=== PATIENT | female | born 1990 | race Caucasian/White ===

== ENCOUNTER → 2018-04-30 | Outpatient (CLI) | payer OTHER ==
[~2018-04-30] MED LIST: CITA20TA9 PO; GADAVIST IV PRN; JUNEL PO
--- NOTE | 2018-04-30 17:14 | DIAGNOSTIC IMAGING REPORT ---
MRA HEAD WITHOUT CONTRAST HISTORY: Headache WORSENING MIGRAINES TECHNIQUE: 3-D [id number] MRA of the brain was performed without contrast. COMPARISON STUDY: None. FINDINGS: Visualized intracranial internal carotid arteries, distal vertebral arteries, and basilar artery are widely patent. There is no significant stenosis, occlusion, or aneurysm seen within the bilateral ACAs, MCAs, or nipple machine operator. IMPRESSION: No significant stenosis, occlusion, or aneurysm within the absentee-[place] of Samuel. The above report was generated using voice recognition software. It may contain grammatical, syntax or spelling errors. Electronically signed by: Anjum Alston M.D. 04/30/2018 5:12 PM Dictated Date/Time: 04/30/2018 5:10 PM
--- NOTE | 2018-04-30 17:23 | DIAGNOSTIC IMAGING REPORT ---
BRAIN COMBO CLINICAL HISTORY: 27 years-old Female presenting with WORSENING MIGRAINES, increased neck and back pain, jaw pain. TECHNIQUE: Multisequence, multiplanar MR imaging of the brain was performed before and after the administration of intravenous contrast. IV contrast: 5 mL of Gadavist. COMPARISON: None. FINDINGS: Localizer images: Unremarkable. Ventricles and sulci normal in size. Brain parenchyma normal in appearance with preserved felipe-white differentiation. No mass effect or midline shift. No restricted diffusion to suggest acute ischemia. No hemorrhage. No extra-axial fluid collection. T2 skull base flow voids preserved. No abnormal parenchymal enhancement. Bone marrow signal intensity within the calvarium within normal limits. IMPRESSION: 1. No acute intracranial pathology. No abnormal enhancement. Electronically signed by: Ted Awad M.D. 04/30/2018 5:21 PM Dictated Date/Time: 04/30/2018 5:16 PM
== END | disposition home or self-care (01) ==
LOC: C.MRI 15:53
PROVIDERS: ATTEND Nurse Practitioner Family
DX: G43.909 Migraine, unspecified, not intractable, without status migrainosus (principal); H53.9 Unspecified visual disturbance

== ENCOUNTER 2019-08-31 00:59 | Inpatient (IN) ==
[2019-08-31] MEDS: LACTATED RINGER'S 1,000 ML IV PRN ×3 (01:37→07:07)
[2019-08-31] MEDS ORDERED: OXYTOCIN 30 UNITS/500 ML BAG IV PRN ×2 (01:38→08:19)
[2019-08-31] MEDS ORDERED: fentaNYL citrate 100 MCG/2 ML VIAL ONE (01:48)
[2019-08-31] MEDS ORDERED: BUPIVACAINE 0.25% 30 ML VIAL ONE (01:48)
[2019-08-31] MEDS ORDERED: fentaNYL 2MCG/ML ROPIV 1.25MG/ML 100 ML BAG EPI ONE (01:48)
[2019-08-31] MEDS ORDERED: ePHEDrine sulfate 50 MG/ML AMP ONE (01:48)
[2019-08-31 02:01] LABS: Hematocrit (blood only) 36.5 % (37-47); Hemoglobin 12.4 g/dL (12.0-16.0); Mean Corpuscular Hemoglobin 30.1 pg (25-34); Mean Corpuscular Volume 88.6 fL (80-100); Mean Platelet Volume 11.7 fL (7.4-10.4); Platelet Count 170 K/uL (130-400); RDW Coefficient of Variation 13.8 % (11.5-14.5); RDW Standard Deviation 44.6 fL (36.4-46.3); Red Blood Count 4.12 M/uL (4.2-5.4); White Blood Count 10.92 K/uL (4.8-10.8)
[2019-08-31] MEDS ORDERED: ONDANSETRON INJ 2 MG/ML 2 ML VIAL IV PRN (02:10)
[2019-08-31] MEDS ORDERED: NALOXONE HCL 1 MG in SODIUM CHLORIDE 0.9% 1000ML 1,000 ML IV PRN (02:10)
[2019-08-31] MEDS ORDERED: DiphenhydrAMINE HCL 50 MG/ML VIAL IV PRN (02:10)
[2019-08-31] MEDS ORDERED: NALOXONE HCL 0.4 MG/1 ML VIAL/CARP IV PRN (02:10)
[2019-08-31] MEDS ORDERED: ePHEDrine sulfate 50 MG/ML AMP IV PRN (02:10)
[2019-08-31] MEDS ORDERED: fentaNYL 2MCG/ML ROPIV 1.25MG/ML 100 ML BAG EPI PRN (02:10)
[2019-08-31] MEDS ORDERED: NALBUPHINE HCL INJ 10 MG/ML AMP IV PRN (02:10)
--- NOTE | 2019-08-31 02:12 | Anesthesiology Consultation ---
Date of Service August 31, 2019 Assessment & Plan (1) Encounter for pre-operative examination: Chart Review Chart Review: Patient NOT seen in Pre Admission Testing and Acceptable Risk for Labor Epidural Consults Requested none History Height/Weight Height: 5 ft 4 in Weight: 74.843 kg Allergies Allergy/AdvReac Type Severity Reaction Status Date / Time No Known Drug Allergies Allergy Verified 08/28/19 12:01 Medications Home Medications Medication Instructions Recorded Confirmed Last Taken prenat.vits,nathaly,[id number] 1 tab PO DAILY 07/04/19 08/31/19 1 Day Ago ~08/30/19 Active Medications Generic Name Dose Route Start Last Admin Trade Name Freq PRN Reason Stop Dose Admin Lactated Ringer's 1,000 mls @ 125 mls/hr 08/31/19 01:38 08/31/19 01:37 Lr IV 09/02/19 01:37 999 mls/hr .Q8H PRN Administration L&D Protocol Protocol Past Medical History Medical History History of chicken pox History of dysuria History of urinary tract infection Exercise / Class Metabolic Activity II 4-5 Yardwork/Stairs/Walk up hill Past Family History Family History Grandmother (Maternal) Blood clot in vein Hypercholesterolemia Grandmother (Paternal) Diabetes Grandfather (Paternal) Cardiac disorder Mother Hypercholesterolemia Hypertension Father Hypertension Other Heart disease Hodgkin disease Past Surgical History Surgical History S/P wisdom tooth extraction Past Anesthesia History No Hx of Anesthesia Complications and No Family Hx of Anesthesia Complications History of PONV No Hx of PONV and No Hx of Motion Sickness Social History Smoking Status: Never smoker Do You Dip or Chew Tobacco: No Hx Alcohol Use: No Hx Substance Use: No Physical Exam Vital Signs Last Vital Signs Temp 36.7 C 08/31/19 01:17 Pulse 86 08/31/19 02:30 Resp 18 08/31/19 01:17 BP 126/85 08/31/19 01:35 Pulse Ox 89 L 08/31/19 02:30 Testing Laboratory Results 08/31/19 01:52
--- NOTE | 2019-08-31 05:20 | Labor Progress Brief Note ---
Date of Service August 31, 2019 Subjective I was called to the bedside for a deceleration to 60s for 6 min. Patient was repositioned into knee-chest and a FSE was applied, which showed FHT had recovered to 130s mod oleksandr +acc -dec. Cervix feels to be at or near complete dilation but difficult to assess anterior aspect in this position. Will give some time for recovery then return to supine, and if complete, can begin second stage. Results & Data Vital Signs (Past 12 Hours) Vital Signs Temp Pulse Resp BP Pulse Ox 08/31/19 05:09 87 98 08/31/19 05:04 83 97 08/31/19 04:59 82 97 08/31/19 04:57 73 105/55 L 08/31/19 04:54 74 98 08/31/19 04:49 76 98 08/31/19 04:44 69 98 08/31/19 04:40 67 101/60 08/31/19 04:39 73 99 08/31/19 04:34 83 98 08/31/19 04:29 70 99 08/31/19 04:27 77 104/61 08/31/19 04:24 74 98 08/31/19 04:19 73 99 08/31/19 04:14 71 100 08/31/19 04:12 69 113/67 08/31/19 04:09 74 100 08/31/19 04:04 73 99 08/31/19 03:59 76 99 08/31/19 03:57 74 106/66 08/31/19 03:54 73 98 08/31/19 03:49 79 100 08/31/19 03:44 89 100 08/31/19 03:41 89 133/79 08/31/19 03:39 82 100 08/31/19 03:34 82 100 08/31/19 03:30 20 08/31/19 03:29 69 97 08/31/19 03:25 77 114/70 08/31/19 03:24 76 100 08/31/19 03:19 87 99 08/31/19 03:14 89 100 08/31/19 03:12 96 H 112/67 08/31/19 03:09 96 H 95 08/31/19 03:07 84 88 L 08/31/19 03:04 82 100 08/31/19 02:59 81 100 08/31/19 02:54 98 H 100 08/31/19 02:53 101 H 87 L 08/31/19 02:49 91 H 99 08/31/19 02:48 105 H 117/86 08/31/19 02:45 20 08/31/19 02:44 81 99 08/31/19 02:42 74 111/69 08/31/19 02:40 73 20 109/69 08/31/19 02:39 82 98 08/31/19 02:38 70 109/71 08/31/19 02:37 66 106/63 08/31/19 02:36 81 106/57 L 92 08/31/19 02:35 99.0 F 20 08/31/19 02:34 73 98 08/31/19 02:30 86 20 89 L 08/31/19 02:29 83 99 08/31/19 02:24 101 H 99 08/31/19 02:19 98 H 98 08/31/19 01:35 77 126/85 08/31/19 01:19 77 126/85 08/31/19 01:17 98.1 F 18
[2019-08-31] MEDS ORDERED: BENZOCAINE 20% AER SPR 82.5 GM CAN EXT PRN (08:19)
[2019-08-31] MEDS ORDERED: HYDROCORTISONE ACETATE 25 MG SUPP PR PRN (08:19)
[2019-08-31] MEDS ORDERED: DIPHTHERIA/TETANUS/PERTUSSIS 0.5 ML SYR/VIAL IM ONE (08:19)
[2019-08-31] MEDS ORDERED: LACTATED RINGER'S 1,000 ML IV SCH (08:19)
[2019-08-31] MEDS ORDERED: ACETAMINOPHEN 325 MG TAB PO PRN (08:19)
[2019-08-31] MEDS ORDERED: SUPERCREAM 0.870% 15 GM JAR EXT PRN (08:19)
--- NOTE | 2019-08-31 08:32 | Anesthesia Procedure Note ---
Date of Service August 31, 2019 Anesthesia Post Epidural Note Vital Signs Vital Signs: Temp Pulse Resp BP Pulse Ox 37.2 C 85 20 127/73 99 08/31/19 02:35 08/31/19 08:26 08/31/19 06:30 08/31/19 08:26 08/31/19 07:28 Pain Intensity Bilateral Abdomen: Pain Intensity: 0 Notes Mental Status: alert / awake / arousable and participated in evaluation Nausea / Vomiting: adequately controlled Pain: adequately controlled Airway Patency, RR, SpO2: stable & adequate BP & HR: stable & adequate Hydration State: stable & adequate Neuraxial Anesthesia: was administered and sensory block is resolving Anesthetic Complications: no major complications apparent and Pt Satisfied with anesthetic care Epidural: Removed without complications and With tip intact
[2019-08-31] MEDS: DOCUSATE SODIUM 100 MG CAP PO SCH ×2 (11:21→20:20)
[2019-08-31] MEDS: PRENATAL VITAMIN 1 TAB PO SCH (11:22)
[2019-08-31] MEDS: IBUPROFEN 600 MG TAB PO PRN ×2 (14:55→20:20)
[2019-08-31] MEDS ORDERED: Nursing to Pharmacy Communication ONE (15:17)
[2019-09-01] MEDS: IBUPROFEN 600 MG TAB PO PRN (04:37)
[2019-09-01 06:25] LABS: Hematocrit (blood only) 28.9 % (37-47); Hemoglobin 9.6 g/dL (12.0-16.0); Mean Corpuscular Hgb Conc 33.2 g/dL (32-36); Mean Corpuscular Volume 90.3 fL (80-100); Mean Platelet Volume 11.5 fL (7.4-10.4); Platelet Count 135 K/uL (130-400); RDW Coefficient of Variation 14.2 % (11.5-14.5); RDW Standard Deviation 47.3 fL (36.4-46.3); White Blood Count 10.45 K/uL (4.8-10.8)
[2019-09-01] MEDS: DOCUSATE SODIUM 100 MG CAP PO SCH (08:54)
[2019-09-01] MEDS: PRENATAL VITAMIN 1 TAB PO SCH (08:54)
--- NOTE | 2019-09-01 09:27 | Obstetrical Progress Note ---
Date of Service September 01, 2019 Assessment & Plan (1) Vaginal delivery: Doing well. Desires d/c. Instructions given. Call with concerns/issues. Day #:: 2 Subjective Ambulation: ambulating normally Voiding: no voiding problems Passing Gas:: Yes Diet Tolerance:: regular diet (no n/v) Lochia:: Small Feeding Type:: breast feeding Patient desires d/c home today. Physical Exam Constitutional WD/WN, vitals as above Respiratory normal respiratory effort, lungs clear to auscultation Cardiovascular RRR, no murmur, no edema Gastrointestinal (Abdomen) soft, nt, nd ff/nt at u Psychiatric A+Ox3, euthymic affect Results & Data Vital Signs (Past 12 Hours) Vital Signs Temp Pulse Resp BP 09/01/19 04:30 36.7 C 82 18 99/58 L 08/31/19 23:55 36.7 C 88 20 99/54 L
--- NOTE | 2019-09-02 13:09 | Delivery Summary ---
Vaginal Delivery Summary Date of Service September 02, 2019 Vaginal Delivery Summary DIAGNOSES: 1. Root intrauterine at 40w gestation. 2. Spontaneous onset of labor. 3. Group B Streptococcus Neg. PROCEDURE: Spontaneous vaginal delivery and repair of 2nd degree laceration. SURGEON: Cleo Khan MD. JEWELRY MAKING INSTRUCTOR: None. ESTIMATED BLOOD LOSS: 350 mL. COMPLICATIONS: None. PLACENTA: Spontaneous and intact with a 3-vessel cord. DISPOSITION: Stable to labor and delivery. DESCRIPTION: The patient pushed well and brought the head to in OA position. The infant's head was allowed to deliver with contraction force and no further active pushing, with the perineum protected during this time. The shoulders delivered easily with a maternal pushing effort. There was a triple nuchal cord, reduced x3 loops at the perineum. The shoulders and body delivered without any difficulty, and the was placed on the maternal abdomen. It was vigorous and moving all extremities, and making respiratory efforts. The cord was doubly clamped by the MD and then cut by the FOB. The placenta delivered spontaneously and was noted to be intact and with a 3VC. The cervix, vagina and perineum were examined and were found to have a second degree lace ration which was repaired in the usual manner with vicryl suture.. The fundus was firm and lochia minimal immediately after delivery.
== END 2019-09-01 20:00 | disposition home or self-care (01) | DRG 807 ==
LOC: OPB 00:59 → 4S1 01:04 → 4S2 14:44